=== PATIENT | male | born 1975 | race American Indian/Alaskan Native ===

== ENCOUNTER 2018-10-08 12:28 | Emergency (ER) | payer MEDICAID ==
[2018-10-08 12:51] VITALS: RESP 16
[2018-10-08 14:02] LABS: BASO % 1.1 % (0.0-2.0); EOS # 0.2 K/uL (0.0-0.7); EOS % 5.1 % (0.0-4.0); HEMOGLOBIN 12.5 g/dL (12.0-18.0); LYMPH # 1.7 K/uL (1.0-4.3); LYMPH % 40.4 % (20.0-40.0); MEAN CELL VOLUME 93.6 fl (80.0-94.0); MEAN CORPUSCULAR HEMOGLOBIN 30.4 pg (27.0-31.0); MEAN CORPUSCULAR HGB CONC 32.5 g/dL (33.0-37.0); MONO # 0.3 K/uL (0.0-0.8); MONO % 7.1 % (0.0-10.0); NEUT % 46.3 % (50.0-75.0); NRBC % 0.1 % (0.0-0.0); RBC 4.12 Mil/uL (4.40-5.90); RED CELL DISTRIBUTION WIDTH 12.1 % (11.5-14.5); WHITE BLOOD COUNT 4.2 K/uL (4.8-10.8)
--- NOTE | 2018-10-08 14:14 | ED PDOC ---
Lower Extremity Pain/Injury Time Seen by Provider: 10/08/18 13:07 Chief Complaint (Nursing): Lower Extremity Problem/Injury Chief Complaint (Provider): Left Knee Swelling History Per: Patient History/Exam Limitations: no limitations Onset/Duration Of Symptoms: Days (since 09/22/18) Additional Complaint(s): 43 year old male presents to the ED for evaluation of left knee swelling. He states he slipped and fell on tiles striking his left knee in the [place] on 09/22/18 where he was promptly seen at an ED there. At that time, patient reports having fluid from the knee drained and a splint placed, but states he was not told of a fracture, just of "some abnormality" to the knee cap. He removed the splint on his own after 4-5 days, however notes that the swelling persisted although somewhat improved, associated with weight bearing pain to left knee that goes down to his calf. Patient says he returned from the [facility] five days ago and has not been evaluated since his return. 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 Past Medical History Reviewed: Historical Data Vital Signs: Last Vital Signs Temp 98.6 F 10/08/18 12:43 Pulse 56 L 10/08/18 12:43 Resp 16 10/08/18 12:43 BP 141/88 10/08/18 12:43 Pulse Ox 98 10/08/18 12:43 Primary Care Provider: Procedure,Nonphys - Medical History PMH: No Chronic Diseases - Surgical History Surgical History: No Surg Hx - Family History Family History: States: Unknown Family Hx - Social History Current smoker - smoking cessation education provided: No Alcohol: Social Drugs: Cannabis - Immunization History Hx Tetanus Toxoid Vaccination: Yes Hx Influenza Vaccination: No Hx Pneumococcal Vaccination: No - Home Medications Home Medications: Ambulatory Orders Medication Instructions Recorded Ibuprofen [Motrin Tab] 600 mg PO Q6 PRN 7 Days tab 10/08/18 - Allergies Allergies/Adverse Reactions: Allergies Allergy/AdvReac Type Severity Reaction Status Date / Time No Known Allergies Allergy Verified 10/08/18 12:43 Review of Systems ROS Statement: Except As Marked, All Systems Reviewed And Found Negative Constitutional: Negative for: Fever, Chills Cardiovascular: Negative for: Chest Pain Respiratory: Negative for: Shortness of Breath Musculoskeletal: Positive for: Other (left knee swelling down to calf) Neurological: Negative for: Numbness (or tingling in left foot) Physical Exam - Reviewed Nursing Documentation Reviewed: Yes Vital Signs Reviewed: Yes - Physical Exam Appears: Positive for: No Acute Distress Pulses-Dorsalis Pedis (L): 2+ Pulses-Dorsalis Pedis (R): 2+ Extremity: Positive for: Normal ROM (normal ROM with flexion and extension of left hip and ankle, but mildly decreased ROM with flexion of knee), Capillary Refill (less than 2 seconds), Swelling (left knee with swelling and increased warmth compared to right leg, but no erythema or ecchymosis; mild swelling to left calf compared to right leg). Negative for: Tenderness (to left knee), Calf Tenderness (left), Other (Rowan's sign) Neurological/Psych: Positive for: Awake, Alert, Oriented (x3) - Laboratory Results Result Diagrams: 10/08/18 13:45 10/08/18 13:45 - ECG O2 Sat by Pulse Oximetry: 98 (RA) Pulse Ox Interpretation: Normal Medical Decision Making Medical Decision Making: Time: 1324 Initial Impression: left knee pain, left calf swelling, r/o DVT Initial Plan: --BMP --CBC with differential --Left knee XR --Ibuprofen 600mg PO --LLE US duplex 1539 US FINDINGS: Good compressibility, augmentation and normal phasic blood flow and morphology are identified at the left common and superficial femoral as well as popliteal veins with the posterior tibial vein appearing patent as well. IMPRESSION: No sonographic evidence to suggest deep venous thrombosis left lower extremity. 1559 Knee XR reviewed by me as questionable healing patella fracture. CT knee ordered without contrast to evaluate possible occult changes and effusion further. (official XR read: FINDINGS: BONES: No acute fracture or destructive bony lesion identified. JOINTS: No subluxation or dislocation identified. JOINT EFFUSION: Suprapatellar bursa effusion is noted. OTHER FINDINGS: Soft tissue edema is seen overlying the patellar tendon. IMPRESSION: Soft tissue edema overlies the patellar tendon. No acute fracture, subluxation or dislocation left knee.) [address], resting comfortably in bed. 1741 CT FINDINGS: No fracture, subluxation or dislocation or destructive bony lesion is identified involving the visualized distal femur and proximal tibia and fibula. The ruffin la is intact and appears grossly nonfocal as well. Irregular changes are identified at the region of the patellar tendon suspicious for partial or complete tear. Clinically correlate further. Orthopedic consultation advised. The quadriceps tendon appears unremarkable. A [id number] suprapatellar bursa effusion is identified with edema surrounding the region of the patellar tendon diffusely as well as anterior to the inferior margins of the patella. Popliteal compartment appears unremar kable. IMPRESSION: Pattern suspicious for partial or complete tear of the patellar tendon. Further clinical correlation is recommended as well as orthopedic consultation. No acute fracture, subluxation or dislocation. [id number] suprapatellar bursa effusion. [address] results, consult to Dr. Mcgowan, orthopedist, placed. Awaiting phone call back. [address] Mcgowan, who recommends placing pt in knee immobilizer and to follow up in his office tomorrow. Stable for discharge home with all questions answered and verbalization of agreement/ understanding of discharge plan. Scribe Attestation: Documented by Yaneth Marrufo, acting as a scribe for Iqra Alexandra PA-C Provider Scribe Attestation: All medical record entries made by the Scribe were at my direction and personally dictated by me. I have reviewed the chart and agree that the record accurately reflects my personal performance of the history, physical exam, medical decision making, and the department course for this patient. I have also personally directed, reviewed, and agree with the discharge instructions and disposition. Disposition - Clinical Impression Clinical Impression: Patellar tendon rupture - Patient ED Disposition Is Patient to be Admitted: No - Disposition Referrals: [facility] [place] [Outside] Juan David Mcgowan III, MD [Staff Provider] - Disposition: Routine/Home Disposition Time: 18:57 Condition: STABLE Additional Instructions: Follow up with Dr. Mcgowan of orthopedics tomorrow morning in his office. Take Ibuprofen and Tylenol for pain. Use knee immobilizer most of day but can remove to sleep. Return to ER if you develop fever or worsening swelling despite medications. Prescriptions: Ibuprofen [Motrin Tab] 600 mg PO Q6 PRN 7 Days tab PRN Reason: Pain, Moderate (4-7) Instructions: Lower Extremity Muscle Strain (DC) Forms: [employer] (Kinyarwanda) Print Language: SWEDISH
[2018-10-08 14:15] LABS: BLOOD UREA NITROGEN 12 mg/dl (9-20); CALCIUM 8.9 mg/dL (8.4-10.2); GFR NON-AFRICAN AMERICAN > 60
--- NOTE | 2018-10-08 15:42 | US ---
Date of service: 10/08/2018 PROCEDURE: LEFT LOWER EXTREMITY VENOUS ULTRASOUND HISTORY: Left calf swelling since 09/22 COMPARISON: None available. TECHNIQUE: Standard and duplex Doppler ultrasonography of the left lower extremity major deep veins was performed including graded compression and augmentation. Longitudinal and transverse projections have been submitted for interpretation. FINDINGS: Good compressibility, augmentation and normal phasic blood flow and morphology are identified at the left common and superficial femoral as well as popliteal veins with the posterior tibial vein appearing patent as well. IMPRESSION: No sonographic evidence to suggest deep venous thrombosis left lower extremity.
--- NOTE | 2018-10-08 17:45 | CT ---
Date of service: 10/08/2018 PROCEDURE: LEFT KNEE CT WITHOUT CONTRAST HISTORY: evaluate effusion and occult fracture COMPARISON: Left knee radiographs 10/08/2018. TECHNIQUE: A volumetric CT acquisition was performed through the left knee without intravenous contrast as requested. Reformatted dataset provided in multiple projections by various algorithms. Radiation dose:Total exam DLP = 318.63 mGy-cm. This CT exam was performed using one or more of the following dose reduction techniques: Automated exposure control, adjustment of the mA and/or kV according to patient size, and/or use of iterative reconstruction technique. FINDINGS: No fracture, subluxation or dislocation or destructive bony lesion is identified involving the visualized distal femur and proximal tibia and fibula. The patella is intact and appears grossly nonfocal as well. Irregular changes are identified at the region of the patellar tendon suspicious for partial or complete tear. Clinically correlate further. Orthopedic consultation advised. The quadriceps tendon appears unremarkable. A [id number] suprapatellar bursa effusion is identified with edema surrounding the region of the patellar tendon diffusely as well as anterior to the inferior margins of the patella. Popliteal compartment appears unremarkable. IMPRESSION: Pattern suspicious for partial or complete tear of the patellar tendon. Further clinical correlation is recommended as well as orthopedic consultation. No acute fracture, subluxation or dislocation. [id number] suprapatellar bursa effusion.
--- NOTE | 2018-10-08 18:30 | RAD ---
Date of service: 10/08/2018 PROCEDURE: Left Knee Radiographs. HISTORY: Pain. COMPARISON: None. TECHNIQUE: 2 views obtained. FINDINGS: BONES: No acute fracture or destructive bony lesion identified. JOINTS: No subluxation or dislocation identified. JOINT EFFUSION: Suprapatellar bursa effusion is noted. OTHER FINDINGS: Soft tissue edema is seen overlying the patellar tendon. IMPRESSION: Soft tissue edema overlies the patellar tendon. No acute fracture, subluxation or dislocation left knee.
[2018-10-08 19:47] VITALS: BP 132/68; PULSE 61; TEMP 98.8
[2018-10-09 01:50] VITALS: O2SAT 98
== END 2018-10-08 19:46 | disposition home or self-care (01) ==
LOC: H.ER 12:28
DX: S86.812A Strain of other muscle(s) and tendon(s) at lower leg level, left leg, initial encounter (principal); W19.XXXA Unspecified fall, initial encounter; Y92.89 Other specified places as the place of occurrence of the external cause